=== PATIENT | male | born 1995 | race American Indian/Alaskan Native ===

== ENCOUNTER 2019-03-13 09:03 | Emergency (ER) | payer SELFPAY ==
[2019-03-13 09:08] VITALS: BP 136/80
[2019-03-13] MEDS ORDERED: XYLOCAINE 1% MPF 5 mL INFILTRATI ONE (09:16)
[2019-03-13] MEDS ORDERED: ZITHROMAX PO ONE (09:16)
[2019-03-13] MEDS ORDERED: ROCEPHIN IM ONE (09:16)
--- NOTE | 2019-03-13 09:19 | Emergency Department Report ---
ED Male HPI - General Chief complaint: Urogenital-Male Stated complaint: STD TESTED CHECK UP Time Seen by Provider: 03/13/19 09:12 Source: patient Mode of arrival: Ambulatory Limitations: No Limitations - History of Present Illness Initial comments: Patient is 24 years old male with no significant past medical history. Patient presented to the ER complaining of penile discharge for the last 2 days. Patient stated that he had a new partner. Patient denied any fever or chills. Patient denied any other symptoms. MD Complaint: penile discharge - Related Data Home Medications Medication Instructions Recorded Confirmed Last Taken No Known Home Medications [No 09/13/15 09/13/15 Unknown Reported Home Medications] Allergies Allergy/AdvReac Type Severity Reaction Status Date / Time No Known Allergies Allergy Unverified 09/13/15 17:07 ED Review of Systems ROS: Stated complaint: STD TESTED CHECK UP Other details as noted in HPI Comment: All other systems reviewed and negative Constitutional: denies: chills, fever Cardiovascular: denies: chest pain, palpitations Gastrointestinal: denies: abdominal pain, nausea, vomiting Genitourinary: discharge. denies: urgency, frequency ED Past Medical Hx - Past Medical History Previous Medical History?: No - Surgical History Past Surgical History?: No - Social History Smoking Status: Never Smoker Substance Use Type: None - Medications Home Medications: Home Medications Medication Instructions Recorded Confirmed Last Taken Type No Known Home Medications [No 09/13/15 09/13/15 Unknown History Reported Home Medications] ED Physical Exam - General Limitations: No Limitations General appearance: alert, in no apparent distress - Head Head exam: Present: atraumatic, normocephalic, normal inspection - Respiratory Respiratory exam: Present: normal lung sounds bilaterally - Cardiovascular Cardiovascular Exam: Present: regular rate, normal rhythm, normal heart sounds - GI/Abdominal GI/Abdominal exam: Present: soft, normal bowel sounds. Absent: distended, tenderness, guarding, rebound, rigid, organomegaly, mass, bruit, pulsatile mass, hernia - Extremities Exam Extremities exam: Present: normal inspection, full ROM, normal capillary refill - Neurological Exam Neurological exam: Present: alert, oriented X3, CN II-XII intact, normal gait, reflexes normal ED Course Vital Signs 03/13/19 09:05 Temperature 97.9 F Pulse Rate 89 Respiratory 18 Rate Blood Pressure 136/80 O2 Sat by Pulse 98 Oximetry ED Medical Decision Making - Medical Decision Making Patient treated empirically with Rocephin 250 mg IM and Zithromax 1 g by mouth. Urine collected for GC and chlamydia. Critical care attestation.: If time is entered above; I have spent that time in minutes in the direct care of this critically ill patient, excluding procedure time. ED Disposition Clinical Impression: STD (male), Penile discharge Disposition: TO HOME OR SELFCARE Is pt being admited?: No Condition: Stable Instructions: Safe Sex (ED), Sexually Transmitted Diseases (ED) Referrals: [facility] [Provider Group] - 3-5 Days
[2019-03-13 10:16] LABS: Bilirubin,Urine NEG (Negative); Blood,Urine NEG (Negative); Color,Urine Yellow (Yellow); Mucus,Urine FEW /HPF; Protein,Urine <15 mg/dL mg/dL (Negative)
== END 2019-03-13 09:50 | disposition home or self-care (01) ==
LOC: ED 09:03
DX: R36.9 Urethral discharge, unspecified (principal); A64 Unspecified sexually transmitted disease
CPT/HCPCS: 81001; 87591; 96372; 99283; J0696

== ENCOUNTER 2020-10-08 00:45 | Emergency (ER) | payer SELFPAY ==
[2020-10-08 02:13] VITALS: BP 125/49
--- NOTE | 2020-10-08 03:08 | XRay Report ---
CHEST 1 VIEW INDICATION: chestpain COMPARISON: None FINDINGS: Support devices: None Heart: Normal Lungs/Pleura: No acute pulmonary or pleural findings. IMPRESSION: 1. No acute disease. Signer Name: Mj Harkins MD Signed: 10/08/2020 3:03 AM Workstation Name: [id number]
--- NOTE | 2020-10-08 05:09 | Emergency Department Report ---
ED Chest Pain HPI - General Chief Complaint: Adult Asthma Stated Complaint: CHEST PAIN;POSSIBLE CHEST CYST Source: patient Mode of arrival: Ambulatory Limitations: No Limitations - History of Present Illness Initial Comments: Patient is a 25-year-old -[place] male with a history of asthma who presents to the ED with complaint of acute onset persistent anterior chest wall pain after a metallic weight he was lifting accidentally dropped and hit him on the anterior chest wall 2 weeks ago. Patient states that the pain has been persistent and intermittent with palpation of the anterior chest wall, flexing the arms and the chest wall as well as deep inhalation. Patient denies hemoptysis, shortness of breath, dizziness, syncope, cough, hematemesis, abdominal pain, back pain, neck pain, head or neck injuries or loss of consciousness. MD Complaint: chest pain (Anterior chest wall pain), other (Metallic weight hit him on the chest 2 weeks ago) -: Sudden, week(s) (2) Onset: other (Heavy lifting, metallic weight dropped on his anterior chest) Pain Location: substernal (Anterior substernal chest wall pain) Pain Radiation: none Severity scale (0 -10): 4 Quality: aching, sharp Consistency: intermittent Improves With: rest Worsens With: exertion, inspiration, palpation, movement Context: trauma/injury (Metallic weight dropped accidentally on the chest) re: denies: nausea, vomting, diaphoresis, dyspnea, sense of impending doom Other Symptoms: denies: cough, fever, syncope, rash, acid taste in mouth, palpitations, burping, other Treatments Prior to Arrival: none - Related Data On Oral Contraceptives: No Previous Rx's Medication Instructions Recorded Last Taken Type Doxycycline Hyclate [Doxycycline 100 mg PO Q12HR #20 tab 03/13/19 Unknown Rx Hyclate TAB] Ibuprofen [Motrin] 800 mg PO Q8HR PRN #30 tablet 10/08/20 Unknown Rx Allergies Allergy/AdvReac Type Severity Reaction Status Date / Time No Known Allergies Allergy Unverified 09/13/15 17:07 Heart Score - HEART Score History: Slightly suspicious EKG: Normal Age: < 45 Risk factors: No known risk factors Troponin: < normal limit HEART Score: 0 - Critical Actions Critical Actions: 0-3 pts:0.9-1.7%risk of adverse cardiac event.Candidate for discharge ED Review of Systems ROS: Stated complaint: CHEST PAIN;POSSIBLE CHEST CYST Other details as noted in HPI Constitutional: denies: chills, fever Eyes: denies: eye pain, eye discharge, vision change ENT: denies: ear pain, throat pain Respiratory: denies: cough, shortness of breath, wheezing Cardiovascular: chest pain (Anterior chest wall pain). denies: palpitations Endocrine: no symptoms reported Gastrointestinal: denies: abdominal pain, nausea, diarrhea Genitourinary: denies: urgency, dysuria Musculoskeletal: denies: back pain, joint swelling, arthralgia Skin: denies: rash, lesions Neurological: denies: headache, weakness, paresthesias Psychiatric: denies: anxiety, depression Hematological/Lymphatic: denies: easy bleeding, easy bruising ED Past Medical Hx - Past Medical History Previous Medical History?: Yes Hx Asthma: Yes - Surgical History Past Surgical History?: No - Social History Smoking Status: Never Smoker Substance Use Type: None - Medications Home Medications: Home Medications Medication Instructions Recorded Confirmed Last Taken Type Doxycycline Hyclate [Doxycycline 100 mg PO Q12HR #20 tab 03/13/19 Unknown Rx Hyclate TAB] Ibuprofen [Motrin] 800 mg PO Q8HR PRN #30 tablet 10/08/20 Unknown Rx ED Physical Exam - General Limitations: No Limitations General appearance: alert, in no apparent distress - Head Head exam: Present: atraumatic, normocephalic, normal inspection - Eye Eye exam: Present: normal appearance, PERRL, EOMI Pupils: Present: normal accommodation - ENT ENT exam: Present: normal exam, normal orophraynx, mucous membranes moist, TM's normal bilaterally, normal external ear exam - Neck Neck exam: Present: normal inspection, full ROM - Respiratory Respiratory exam: Present: normal lung sounds bilaterally, chest wall tenderness (Palpable reproducible anterior chest wall tenderness). Absent: respiratory distress, wheezes, rales, rhonchi, stridor, accessory muscle use, prolonged expiratory - Cardiovascular Cardiovascular Exam: Present: regular rate, normal rhythm, normal heart sounds. Absent: systolic murmur, diastolic murmur, rubs, gallop - GI/Abdominal GI/Abdominal exam: Present: soft, normal bowel sounds. Absent: tenderness, guarding, rebound, hyperactive bowel sounds, hypoactive bowel sounds, organomegaly, mass - Extremities Exam Extremities exam: Present: normal inspection, full ROM, normal capillary refill - Back Exam Back exam: Present: normal inspection, full ROM. Absent: tenderness, CVA tenderness (R), CVA tenderness (L), muscle spasm, paraspinal tenderness, vertebral tenderness - Neurological Exam Neurological exam: Present: alert, oriented X3, CN II-XII intact, normal gait, reflexes normal - Psychiatric Psychiatric exam: Present: normal affect, normal mood - Skin Skin exam: Present: warm, dry, intact, normal color. Absent: rash ED Course Vital Signs 10/08/20 02:11 Temperature 98.2 F Pulse Rate 82 Respiratory 18 Rate Blood Pressure 125/49 O2 Sat by Pulse 98 Oximetry DIEGO score - Diego Score Age > 65: (0) No Aspirin use within the Past 7 Days: (0) No 3 or more CAD Risk Factors: (0) No 2 or more Angina events in past 24 hrs: (0) No Known CAD with more than 50% Stenosis: (0) No Elevated Cardiac Markers: (0) No ST Deviation Greater than 0.5mm: (0) No DIEGO Score: 0 ED Medical Decision Making - Radiology Data Radiology results: report reviewed, image reviewed - Medical Decision Making This is a 25-year-old -[place] male with a history of asthma who presents to the ED with complaint of acute onset persistent anterior chest wall pain after a metallic weight he was lifting accidentally dropped and hit him on the anterior chest wall 2 weeks ago. Patient states that the pain has been persistent and intermittent with palpation of the anterior chest wall, flexing the arms and the chest wall as well as deep inhalation. In the ED, patient is alert and oriented x3 and is not in any distress. Patient is hemodynamically stable in triage. Chest x-ray showed no acute cardiopulmonary abnormalities or pneumonitis, pneumothorax, rib fractures or pleural effusion. Patient symptoms are likely due to anterior chest wall muscle strain, chest contusion and costochondritis following the chest wall injury and contusion. Patient was therefore discharged home on pain medications and advised to follow-up with his primary care physician in 3 to 5 days for reevaluation or return to the ED immediately if symptoms get worse. - Differential Diagnosis Chest contusion; rib fracture; muscle strain; costochondritis Critical care attestation.: If time is entered above; I have spent that time in minutes in the direct care of this critically ill patient, excluding procedure time. ED Disposition Clinical Impression: Anterior chest wall pain, Acute costochondritis Contusion of chest wall Qualifiers: Encounter type: initial encounter Laterality: unspecified laterality Qualified Code(s): S20.219A - Contusion of unspecified front wall of thorax, initial encounter Disposition: TO HOME OR SELFCARE Is pt being admited?: No Does the pt Need Aspirin: No Condition: Stable Instructions: Nonspecific Chest Pain, Adult, [id number], Chest Wall Pain, [id number], Costochondritis, [id number], Rib Contusion, Blunt Chest Trauma Additional Instructions: Chest x-ray shows no acute cardiopulmonary abnormalities pneumonitis, rib fractures, pneumothorax or pleural effusion. Your injuries are likely due to chest wall contusion, muscle strain or costochondritis. Therefore take medications with food, drink plenty of fluids and follow-up with your primary care physician in 7 to 10 days for reevaluation or return to the ED immediately if symptoms get worse. Prescriptions: Ibuprofen [Motrin] 800 mg PO Q8HR PRN #30 tablet PRN Reason: Pain , Severe (7-10) Referrals: [facility] [Provider Group] - 3-5 Days Time of Disposition: 05:10 Print Language: FAROESE
--- NOTE | 2020-10-11 08:40 | Electrocardiograph Report ---
[facility] Test Date: 2020-10-08 Test Time: 00:55:06 Pat Name: NURY PERLA Department: Room: Gender: M Appraisal Manager: : 1995 Requested By: LEONID IRBY Order Number: [id number] Reading MD: Kelvin Munoz Measurements Intervals [place] Rate: 85 P: 18 OK: 218 QRS: 54 QRSD: 94 T: 24 QT: 360 QTc: 428 Interpretive Statements Sinus rhythm Prolonged OK interval ST elev, probable normal early repol pattern No previous ECG available for comparison Electronically Signed On 10-11-2020 5:39:35 PDT by Kelvin Munoz
== END 2020-10-08 05:33 | disposition home or self-care (01) ==
LOC: ED 00:45
DX: S20.219A Contusion of unspecified front wall of thorax, initial encounter (principal); M94.0 Chondrocostal junction syndrome [Tietze]; R07.89 Other chest pain; J45.909 Unspecified asthma, uncomplicated; Z79.899 Other long term (current) drug therapy; X50.0XXA Overexertion from strenuous movement or load, initial encounter; Y93.89 Activity, other specified; Y92.89 Other specified places as the place of occurrence of the external cause; Y99.8 Other external cause status
CPT/HCPCS: 71046; 93005

== ENCOUNTER 2020-10-17 20:59 | Emergency (ER) | payer SELFPAY ==
[2020-10-17 21:08] VITALS: BP 156/61
--- NOTE | 2020-10-17 22:25 | Emergency Department Report ---
ED General Adult HPI - General Chief complaint: Skin/Abscess/Foreign Body Stated complaint: knot on rt breast Time Seen by Provider: 10/17/20 22:21 Source: patient Mode of arrival: Ambulatory Limitations: No Limitations - History of Present Illness Initial comments: pt is a 25 y/o aam who presents for right anterior chest wall mass "knot" x 10 months with soreness x 1 week, pt denies fever or chills, no drainage no axillay tenderness, no CA hx with patient of family - Related Data Previous Rx's Medication Instructions Recorded Last Taken Type Doxycycline Hyclate [Doxycycline 100 mg PO Q12HR #20 tab 03/13/19 Unknown Rx Hyclate TAB] Ibuprofen [Motrin] 800 mg PO Q8HR PRN #30 tablet 10/08/20 Unknown Rx Ibuprofen [Motrin 800 MG tab] 800 mg PO Q8HR PRN #30 tablet 10/17/20 Unknown Rx cephALEXin [Keflex] 500 mg PO Q8HR 7 Days #21 cap 10/17/20 Unknown Rx Allergies Allergy/AdvReac Type Severity Reaction Status Date / Time No Known Allergies Allergy Unverified 09/13/15 17:07 ED Review of Systems ROS: Stated complaint: knot on rt breast Other details as noted in HPI Constitutional: denies: chills, fever Eyes: denies: eye pain, eye discharge, vision change ENT: denies: ear pain, throat pain Respiratory: denies: cough, shortness of breath, wheezing Cardiovascular: denies: chest pain, palpitations Endocrine: no symptoms reported Gastrointestinal: denies: abdominal pain, nausea, diarrhea Genitourinary: denies: urgency, dysuria Musculoskeletal: denies: back pain, joint swelling, arthralgia Skin: other (mass right chest wall ). denies: rash, lesions Neurological: denies: headache, weakness, paresthesias Psychiatric: denies: anxiety, depression Hematological/Lymphatic: denies: easy bleeding, easy bruising ED Past Medical Hx - Past Medical History Hx Asthma: Yes - Social History Smoking Status: Never Smoker - Medications Home Medications: Home Medications Medication Instructions Recorded Confirmed Last Taken Type Doxycycline Hyclate [Doxycycline 100 mg PO Q12HR #20 tab 03/13/19 Unknown Rx Hyclate TAB] Ibuprofen [Motrin] 800 mg PO Q8HR PRN #30 tablet 10/08/20 Unknown Rx Ibuprofen [Motrin 800 MG tab] 800 mg PO Q8HR PRN #30 tablet 10/17/20 Unknown Rx cephALEXin [Keflex] 500 mg PO Q8HR 7 Days #21 cap 10/17/20 Unknown Rx ED Physical Exam - General Limitations: No Limitations General appearance: alert, in no apparent distress - Head Head exam: Present: atraumatic, normocephalic - Eye Eye exam: Present: normal appearance, EOMI Pupils: Present: normal accommodation - ENT ENT exam: Present: mucous membranes moist - Neck Neck exam: Present: normal inspection, full ROM. Absent: tenderness - Respiratory Respiratory exam: Present: normal lung sounds bilaterally, chest wall tenderness (right pec, 1x1 cm mass painful to touch, mild erythema moveable no drainage, no nipple drainage or bleeding, no axillary tenderness ). Absent: respiratory distress, wheezes, stridor - Cardiovascular Cardiovascular Exam: Present: regular rate, normal rhythm, normal heart sounds. Absent: systolic murmur, diastolic murmur, rubs, gallop - GI/Abdominal GI/Abdominal exam: Present: soft - Rectal Rectal exam: Present: deferred - Extremities Exam Extremities exam: Present: normal inspection, full ROM. Absent: tenderness - Back Exam Back exam: Present: normal inspection, full ROM. Absent: tenderness - Neurological Exam Neurological exam: Present: alert, oriented X3, normal gait - Psychiatric Psychiatric exam: Present: normal affect, normal mood - Skin Skin exam: Present: warm, dry, intact, normal color, other (mass as above ). Absent: rash ED Course Vital Signs 10/17/20 21:06 Temperature 98.3 F Pulse Rate 95 H Respiratory 16 Rate Blood Pressure 156/61 O2 Sat by Pulse 96 Oximetry ED Medical Decision Making - Medical Decision Making plan NSAIDs, keflex follow up primary care in 2-3 days , moist heat therapy , decrease caffeine intake , return to emergency if symptoms worsen Critical care attestation.: If time is entered above; I have spent that time in minutes in the direct care of this critically ill patient, excluding procedure time. ED Disposition Clinical Impression: Abscess of chest wall Disposition: DC-01 TO HOME OR SELFCARE Is pt being admited?: No Does the pt Need Aspirin: No Instructions: Skin Abscess, [id number] Prescriptions: cephALEXin [Keflex] 500 mg PO Q8HR 7 Days #21 cap Ibuprofen [Motrin 800 MG tab] 800 mg PO Q8HR PRN #30 tablet PRN Reason: pain Referrals: ROSE MAYES MD [Staff Physician] - 3-5 Days Forms: Work/School Release Form(ED) Time of Disposition: 22:29
== END 2020-10-17 23:00 | disposition home or self-care (01) ==
LOC: ED 20:59
DX: L02.213 Cutaneous abscess of chest wall (principal); J45.909 Unspecified asthma, uncomplicated; Z79.899 Other long term (current) drug therapy
CPT/HCPCS: 99282

== ENCOUNTER 2020-11-04 23:19 | Emergency (ER) | payer SELFPAY ==
[2020-11-05 00:37] VITALS: BP 139/75
--- NOTE | 2020-11-05 01:13 | Emergency Department Report ---
ED General Adult HPI - General Chief complaint: Wound/Laceration Stated complaint: LUMP IN CHEST/PAINFUL Source: patient Mode of arrival: Ambulatory Limitations: No Limitations - History of Present Illness Initial comments: Patient is a 25-year-old -British male with past medical history of asthma who presents to the ED with complaint of acute onset persistent painful s wollen nonfluctuant rash on right breast for the last 3 weeks. Patient states that he was initially evaluated in this ED about 3 weeks ago for the same and was given a prescription of Keflex 500 mg to be taken 3 times a day for 1 week. Patient states that it took and finished all these antibiotics but the symptoms became persistent, and has been worsening for the last 3 days. Patient denies traumatic injury, fever, chills, shortness of breath, cough, dizziness, syncope, nausea and vomiting, change in vision or neck pain, abdominal pain, palpitations or lightheadedness. MD Complaint: right breast pain with swelling -: Sudden, week(s) (3) Location: chest Radiation: non-radiation Severity scale (0 -10): 7 Quality: aching, sharp Consistency: constant Improves with: none Worsens with: none Associated Symptoms: denies other symptoms, chest pain (right breast pain with swelling), rash (swollen painful rash on anterior right breast areola). denies: confusion, cough, diaphoresis, fever/chills, headaches, malaise, shortness of breath, syncope, weakness Treatments Prior to Arrival: none - Related Data Previous Rx's Medication Instructions Recorded Last Taken Type Doxycycline Hyclate [Doxycycline 100 mg PO Q12HR #20 tab 03/13/19 Unknown Rx Hyclate TAB] Ibuprofen [Motrin] 800 mg PO Q8HR PRN #30 tablet 10/08/20 Unknown Rx Ibuprofen [Motrin 800 MG tab] 800 mg PO Q8HR PRN #30 tablet 10/17/20 Unknown Rx cephALEXin [Keflex] 500 mg PO Q8HR 7 Days #21 cap 10/17/20 Unknown Rx Clindamycin [Clindamycin CAP] 300 mg PO Q8HR #60 capsule 11/05/20 Unknown Rx Sulfamethoxazole/Trimethoprim 1 each PO Q12H #20 tablet 11/05/20 Unknown Rx [Bactrim DS TAB] Allergies Allergy/AdvReac Type Severity Reaction Status Date / Time No Known Allergies Allergy Unverified 09/13/15 17:07 ED Review of Systems ROS: Stated complaint: LUMP IN CHEST/PAINFUL Other details as noted in HPI Constitutional: denies: chills, fever Eyes: denies: eye pain, eye discharge, vision change ENT: denies: ear pain, throat pain Respiratory: denies: cough, shortness of breath, wheezing Cardiovascular: denies: chest pain, palpitations Endocrine: no symptoms reported Gastrointestinal: denies: abdominal pain, nausea, diarrhea Genitourinary: denies: urgency, dysuria Musculoskeletal: denies: back pain, joint swelling, arthralgia Skin: rash (Swollen, painful maculopapular rash on right breast). denies: lesions Neurological: denies: headache, weakness, paresthesias Psychiatric: denies: anxiety, depression Hematological/Lymphatic: denies: easy bleeding, easy bruising ED Past Medical Hx - Past Medical History Previous Medical History?: Yes Hx Asthma: Yes - Surgical History Past Surgical History?: No - Social History Smoking Status: Never Smoker Substance Use Type: None - Medications Home Medications: Home Medications Medication Instructions Recorded Confirmed Last Taken Type Doxycycline Hyclate [Doxycycline 100 mg PO Q12HR #20 tab 03/13/19 Unknown Rx Hyclate TAB] Ibuprofen [Motrin] 800 mg PO Q8HR PRN #30 tablet 10/08/20 Unknown Rx Ibuprofen [Motrin 800 MG tab] 800 mg PO Q8HR PRN #30 tablet 10/17/20 Unknown Rx cephALEXin [Keflex] 500 mg PO Q8HR 7 Days #21 cap 10/17/20 Unknown Rx Clindamycin [Clindamycin CAP] 300 mg PO Q8HR #60 capsule 11/05/20 Unknown Rx Sulfamethoxazole/Trimethoprim 1 each PO Q12H #20 tablet 11/05/20 Unknown Rx [Bactrim DS TAB] ED Physical Exam - General Limitations: No Limitations General appearance: alert, in no apparent distress - Head Head exam: Present: atraumatic, normocephalic, normal inspection - Eye Eye exam: Present: normal appearance, PERRL, EOMI Pupils: Present: normal accommodation - ENT ENT exam: Present: normal exam, normal orophraynx, mucous membranes moist, TM's normal bilaterally, normal external ear exam - Neck Neck exam: Present: normal inspection, full ROM - Respiratory Respiratory exam: Present: normal lung sounds bilaterally. Absent: respiratory distress, wheezes, rales, stridor, chest wall tenderness, prolonged expiratory - Cardiovascular Cardiovascular Exam: Present: regular rate, normal rhythm, normal heart sounds. Absent: systolic murmur, diastolic murmur, rubs, gallop - GI/Abdominal GI/Abdominal exam: Present: soft, normal bowel sounds. Absent: tenderness, rebound, hyperactive bowel sounds, hypoactive bowel sounds, organomegaly - Extremities Exam Extremities exam: Present: normal inspection, full ROM, normal capillary refill - Back Exam Back exam: Present: normal inspection, full ROM. Absent: tenderness, CVA tenderness (R), muscle spasm, paraspinal tenderness, vertebral tenderness - Neurological Exam Neurological exam: Present: alert, oriented X3, CN II-XII intact, normal gait, other - Psychiatric Psychiatric exam: Present: normal affect, normal mood - Skin Skin exam: Present: warm, dry, intact, normal color, rash (Swollen, tender, nonfluctuant maculopapular rash on right breast areola) ED Course Vital Signs 11/05/20 00:34 Temperature 98.6 F Pulse Rate 90 Respiratory 17 Rate Blood Pressure 139/75 O2 Sat by Pulse 96 Oximetry ED Medical Decision Making - Medical Decision Making This is a 25-year-old -[place] male with past medical history of asthma who presents to the ED with complaint of acute onset persistent painful swollen nonfluctuant rash on right breast for the last 3 weeks. Patient states that he was initially evaluated in this ED about 3 weeks ago for the same and was given a prescription of Keflex 500 mg to be taken 3 times a day for 1 week. Patient states that it took and finished all these antibiotics but the symptoms became persistent, and has been worsening for the last 3 days. In the ED, patient is alert and oriented x3 and is not in any distress. Based on history and physical exam findings, the patient was discharged home on medications including clindamycin and Bactrim DS and the patient was advised to follow-up with his primary care physician in 7 to 10 days for reevaluation or return to the ED immediately if symptoms get worse. - Differential Diagnosis Mastitis; cellulitis; abscess; folliculitis Critical care attestation.: If time is entered above; I have spent that time in minutes in the direct care of this critically ill patient, excluding procedure time. ED Disposition Clinical Impression: Acute mastitis of right breast, Cellulitis of breast of male Disposition: DC- TO HOME OR SELFCARE Is pt being admited?: No Does the pt Need Aspirin: No Condition: Stable Instructions: Mastitis, [id number], Cellulitis, Adult, [id number] Additional Instructions: Take medication with food, drink plenty of fluids and follow-up with your primary care physician in 7 to 10 days for reevaluation. Return to the ED immediately if symptoms get worse. Prescriptions: Sulfamethoxazole/Trimethoprim [Bactrim DS TAB] 1 each PO Q12H #20 tablet Clindamycin [Clindamycin CAP] 300 mg PO Q8HR #60 capsule Referrals: [facility] [Provider Group] - 7-10 days Time of Disposition: 01:10 Print Language: MONTSERRATIAN
[2020-11-05] MEDS ORDERED: INSULIN REGULAR, HUMAN 100 UNITS/1 ML IV ONE (06:27)
== END 2020-11-05 01:41 | disposition home or self-care (01) ==
LOC: ED 23:19
DX: N61.0 Mastitis without abscess (principal); J45.909 Unspecified asthma, uncomplicated; Z79.899 Other long term (current) drug therapy
CPT/HCPCS: 99281

== ENCOUNTER 2022-01-17 09:13 | Emergency (ER) | payer OTHER ==
--- NOTE | 2022-01-17 15:53 | Emergency Department Report ---
ED General Adult HPI - General Chief complaint: Skin/Abscess/Foreign Body Stated complaint: KNOT IN CHEST Time Seen by Provider: 01/17/22 14:03 Source: patient Mode of arrival: Ambulatory Limitations: No Limitations - History of Present Illness Initial comments: 26-year-old male with no significant past medical history reports to the ER with complaints of right breast tenderness with knot in the right breast. Patient reports pain is present with palpation but no pain is present without touching the right breast. Patient reports having similar symptoms about 1 year ago. Patient has not seen a primary care provider in regards to breast lump. No other acute symptoms reported. - Related Data Previous Rx's Medication Instructions Recorded Last Taken Type Doxycycline Hyclate [Doxycycline 100 mg PO Q12HR #20 tab 03/13/19 Unknown Rx Hyclate TAB] Ibuprofen [Motrin] 800 mg PO Q8HR PRN #30 tablet 10/08/20 Unknown Rx Ibuprofen [Motrin 800 MG tab] 800 mg PO Q8HR PRN #30 tablet 10/17/20 Unknown Rx cephALEXin [Keflex] 500 mg PO Q8HR 7 Days #21 cap 10/17/20 Unknown Rx Clindamycin [Clindamycin CAP] 300 mg PO Q8HR #60 capsule 11/05/20 Unknown Rx Sulfamethoxazole/Trimethoprim 1 each PO Q12H #20 tablet 11/05/20 Unknown Rx [Bactrim DS TAB] Ibuprofen [Motrin] 800 mg PO Q8HR PRN 7 Days #21 01/17/22 Unknown Rx tablet Allergies Allergy/AdvReac Type Severity Reaction Status Date / Time No Known Allergies Allergy Unverified 09/13/15 17:07 ED Review of Systems ROS: Stated complaint: KNOT IN CHEST Other details as noted in HPI Constitutional: denies: chills, fever Eyes: denies: eye pain, eye discharge, vision change ENT: denies: ear pain, throat pain Respiratory: denies: cough, shortness of breath, wheezing Cardiovascular: denies: chest pain, palpitations Endocrine: no symptoms reported Gastrointestinal: denies: abdominal pain, nausea, diarrhea Genitourinary: denies: urgency, dysuria Musculoskeletal: other (Right breast tenderness). denies: back pain, joint swelling, arthralgia Skin: denies: rash, lesions Neurological: denies: headache, weakness, paresthesias Psychiatric: denies: anxiety, depression Hematological/Lymphatic: denies: easy bleeding, easy bruising ED Past Medical Hx - Past Medical History Hx Asthma: Yes - Social History Smoking Status: Never Smoker Substance Use Type: None - Medications Home Medications: Home Medications Medication Instructions Recorded Confirmed Last Taken Type Doxycycline Hyclate [Doxycycline 100 mg PO Q12HR #20 tab 03/13/19 Unknown Rx Hyclate TAB] Ibuprofen [Motrin] 800 mg PO Q8HR PRN #30 tablet 10/08/20 Unknown Rx Ibuprofen [Motrin 800 MG tab] 800 mg PO Q8HR PRN #30 tablet 10/17/20 Unknown Rx cephALEXin [Keflex] 500 mg PO Q8HR 7 Days #21 cap 10/17/20 Unknown Rx Clindamycin [Clindamycin CAP] 300 mg PO Q8HR #60 capsule 11/05/20 Unknown Rx Sulfamethoxazole/Trimethoprim 1 each PO Q12H #20 tablet 11/05/20 Unknown Rx [Bactrim DS TAB] Ibuprofen [Motrin] 800 mg PO Q8HR PRN 7 Days #21 01/17/22 Unknown Rx tablet ED Physical Exam - General Limitations: No Limitations General appearance: alert, in no apparent distress - Head Head exam: Present: atraumatic, normocephalic - Eye Eye exam: Present: normal appearance - ENT ENT exam: Present: mucous membranes moist - Neck Neck exam: Present: normal inspection - Respiratory Respiratory exam: Present: normal lung sounds bilaterally. Absent: respiratory distress - Cardiovascular Cardiovascular Exam: Present: regular rate, normal rhythm. Absent: systolic murmur, diastolic murmur, rubs, gallop - GI/Abdominal GI/Abdominal exam: Present: soft, normal bowel sounds - Rectal Rectal exam: Present: deferred - Extremities Exam Extremities exam: Present: normal inspection - Back Exam Back exam: Present: normal inspection - Neurological Exam Neurological exam: Present: alert, oriented X3 - Psychiatric Psychiatric exam: Present: normal affect, normal mood - Skin Skin exam: Present: warm, dry, intact, normal color, other (Right breast nipple with mass behind the nipple with tenderness. With slight swelling noted no abscess present). Absent: rash ED Course Vital Signs 01/17/22 01/17/22 09:25 16:00 Temperature 98.4 F Pulse Rate 82 79 Respiratory 16 18 Rate Blood Pressure 118/71 120/70 [Left] O2 Sat by Pulse 97 97 Oximetry ED Medical Decision Making - Medical Decision Making 26-year-old male with no significant past medical history reports to the ER with complaints of right breast tenderness with knot in the right breast. Patient reports pain is present with palpation but no pain is present without touching the right breast. Patient reports having similar symptoms about 1 year ago. Patient has not seen a primary care provider in regards to breast lump. No other acute symptoms reported. No abscess to right chest noted. On examination there is an behind the right nipple. Tenderness on palpation. No concerns for imaging or labs needed. Patient to follow-up with his primary care provider for further evaluation and to have a physical exam performed. Patient agrees with plan of care and verbalized understanding. Critical care attestation.: If time is entered above; I have spent that time in minutes in the direct care of this critically ill patient, excluding procedure time. ED Disposition Clinical Impression: Breast mass in male Disposition: 01 HOME / SELF CARE / HOMELESS Is pt being admited?: No Condition: Stable Instructions: Breast Cyst Prescriptions: Ibuprofen [Motrin] 800 mg PO Q8HR PRN 7 Days #21 tablet PRN Reason: Pain , Severe (7-10) Referrals: ALEK MELÉNDEZ MD [Staff Physician] - 3-5 Days Time of Disposition: 15:50
[2022-01-17 16:14] VITALS: BP 120/70
== END 2022-01-17 16:06 | disposition home or self-care (01) ==
LOC: ED 09:13
DX: N63.0 Unspecified lump in unspecified breast (principal); J45.909 Unspecified asthma, uncomplicated; Z79.899 Other long term (current) drug therapy
CPT/HCPCS: 99282